=== PATIENT | male | born 1990 | race Caucasian/White ===

== ENCOUNTER 2018-04-20 18:15 | Emergency (ER) | payer OTHER ==
[2018-04-20 18:29] VITALS: BP 130/70; PULSE 80; TEMP 98; BMI 33.7
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
[2018-04-20] MEDS ORDERED: IBUPROFEN 400 MG TABLET (FP) PO ONE (19:08)
[2018-04-20] MEDS ORDERED: hydrOXYzine PAMOATE 50 MG CAPSULE (FP) PO ONE (19:09)
--- NOTE | 2018-04-20 20:32 | PDOC ---
*Physical Exam - Vital Signs Last Vital Signs Temp Pulse Resp BP Pulse Ox 98 F 80 20 130/70 100 04/20/18 18:16 04/20/18 18:16 04/20/18 18:16 04/20/18 18:16 04/20/18 18:16 ED Treatment Course - Medications Given in the ED: ED Medications Discontinued Medications Generic Name Dose Route Start Last Admin Trade Name Valentina PRN Reason Stop Dose Admin Hydroxyzine Pamoate 50 mg 04/20/18 19:09 04/20/18 19:35 Vistaril - PO 04/20/18 19:10 Not Given ONCE ONE Ibuprofen 800 mg 04/20/18 19:08 04/20/18 19:35 Motrin - PO 04/20/18 19:09 800 mg ONCE ONE Administration Progress Note - Progress Note Progress Note: Care of this patient received from . Cervical spine x-ray performed and preliminary interpretation by me: Straightening of the lordotic curve, otherwise no fracture/dislocation. Clinical presentation most consistent with cervical strain; cervical collar placed on patient. Prescriptions sent to pharmacy: Ibuprofen 800 mg up to 3 times a day as needed; Flexeril 10 mg up to 3 times a day as needed. It was explained to the patient that Flexeril will make him sleepy and that he should use this only at night or when he does not need to perform activities requiring his full attention. *DC/Admit/Observation/Transfer Diagnosis at time of Disposition: Cervical strain Qualifiers: Encounter type: initial encounter Qualified Code(s): S16.1XXA - Strain of muscle, fascia and tendon at neck level, initial encounter - Discharge Dispostion Disposition: HOME Condition at time of disposition: Good - Prescriptions Prescriptions: Cyclobenzaprine HCl [Flexeril -] 10 mg PO TID #15 tablet Ibuprofen 800 mg PO TID #20 tablet - Referrals - Patient Instructions Printed Discharge Instructions: DI for Cervical Muscle Strain Additional Instructions: Ibuprofen 800 mg up to 3 times a day as needed for pain/take with food Flexeril 10 mg up to 3 times a day as needed for muscle spasm; this medication will make you sleepy Local warmth to the area of neck pain as needed Soft collar as needed Follow-up with your doctor within the next 5 days Return to ER if you have worsening pain or numbness/weakness of arms or legs - Post Discharge Activity
== END 2018-04-20 20:41 | disposition home or self-care (01) ==
LOC: FER 18:15
DX: S16.1XXA Strain of muscle, fascia and tendon at neck level, initial encounter (principal); V43.52XA Car driver injured in collision with other type car in traffic accident, initial encounter; Y93.89 Activity, other specified; Y92.410 Unspecified street and highway as the place of occurrence of the external cause
CPT/HCPCS: 72050-TC-FY; 99282-25